=== PATIENT | female | born 1940 | race Caucasian/White ===

== ENCOUNTER 2022-03-09 19:01 | Inpatient (IN) | payer MEDICARE, OTHER ==
[~2022-03-09] VITALS: Ht 154.9 cm; Wt 68.8 kg
[~2022-03-09 19:01] MED LIST: CALCIUM + VIT1 EACH PO; CENTRUM SILVER1 EAC5 PO; CO Q-10100 MG PO; CRESTOR20 MG PO; FISH OIL500 MG PO; LEVOTHYROXINE100 MCG PO; LISINOPRIL5 MG PO; MACULAR HEALTH1 EACH PO; VITAMIN D-32000 UNIT PO
[2022-03-09] MEDS ORDERED: GABAPENTIN300 MG PO (19:16)
--- NOTE | 2022-03-09 22:00 | NUR ---
PT ARRIVES TO UNIT VIA STRETCHER WITH ED RN AND SON AT SIDE. PT ALERT AND ORIENTED X3. INITIAL SPO2 LOW 90'S ON 5L OXIMASK. NON PRODUCTIVE WHEEZING COUGH NOTED, WITH CRACKLES HEARD THROUGHOUT LUNG MARX. TEMP 99.6 ORAL. PT REPORTS PAIN IN BACK, MOTRIN ADMINISTERED. PRN COUGH SUPPRESENT ALSO ADMINISTERED. PT TITRATED DOWN TO 3L VIA NC AFTER SETTLING. IV SITE PATENT AND FLUSHED, ORDERED IVF STARTED. ORIENTED TO ROOM AND STAFF, CALL LIGHT IN REACH, DENIES FURTHER NEEDS. ADMISSION ASSESSMENT COMPLETE.
--- NOTE | 2022-03-09 23:52 | NUR ---
RN ROUNDING ON PT - RESTING IN BED ON SIDE WITH EYES CLOSED. RR 23 WITH SPO2 91%.
--- NOTE | 2022-03-10 02:09 | NUR ---
RN IN ROOM TO ASSESS PT - PT RESTING ASLEEP, WAKES EASILY WITH TOUCH, QUICKLY RETURNS TO SLEEP. IV SITE WNL. LUNG SOUNDS IMPROVING WITH CLEAR UPPER MARX. SP02 STABLE ON 3L VIA NC. AFEBRILE. CALL LIGHT AT SIDE.
--- NOTE | 2022-03-10 03:00 | NUR ---
NEW IVF BAG HUNG, PT ASLEEP WITH RR EVEN AND UNLABORED. REMAINS ON 3L 02.
--- NOTE | 2022-03-10 03:54 | NUR ---
RN ROUNDING ON PT - REMAINS ASLEEP ON SIDE, RR EVEN AND UNLABORED, SPO2 STABLE ON 3L O2.
--- NOTE | 2022-03-10 04:49 | NUR ---
RN ROUNDING ON PT - REMAINS ASLEEP WITH EVEN AND UNLABORED RESPIRATIONS. CALL LIGHT AT SIDE.
--- NOTE | 2022-03-10 06:45 | NUR ---
pt up to bsc to attempt to void - unable to urinate after much time sitting. bladder scanned for max amount of 201 - report given to day shift rn who stated she would follow up with MD this am with other concerns as well.
--- NOTE | 2022-03-10 08:00 | NUR ---
SLEEPING. IVF PATENT, O2 AT [address] NC IN PLACE. WILL DO ASSESSMENT WHEN WAKES. REMAINS IN ROOM 127 HOUSE CONVENIENCE PATIENT. RR-26 AT SLEEP.
--- NOTE | 2022-03-10 09:04 | NUR ---
PATIENT CONTINUES TO SLEEP. DR. FU THAT PATIENT HAS NOT VOIDED SINCE ADMIT. ORDERS RECIEVED TO HANG LR BOLUS. THIS DONE.
[2022-03-10] MEDS ORDERED: LEVOTHYROXINE88 MCG PO (10:19)
--- NOTE | 2022-03-10 10:30 | NUR ---
DR. FU HERE TO SEE PATIENT. PATIENT HAS NON-PRODUCTIVE COUGH. DENIES PAIN WITH COUGH. ASSESSMENT DONE. IV BOLUS OF LR HAS INFUSED. DENIES NEED TO VOID AT THIS TIME. TOOK FEW BITES OF BREAKFAST. DENIES NAUSEA. HAS POOR APPETITE.
--- NOTE | 2022-03-10 10:40 | NUR ---
ROBUTUSSIN AND TESSALON PERLES GIVEN FOR COUGH. DECREASED O2 TO 2 LITERS NC FROM 3 LITERS SATS 95.
--- NOTE | 2022-03-10 10:42 | NUR ---
TESSALON PERLES AND ROBUTUSSIN GIVEN FOR COUGH. PATIENT SON IS IN ROOM.
--- NOTE | 2022-03-10 10:50 | NUR ---
O2 INCREASED TO 3 L SAT DOWN TO 88. RESTING WITH HOB ELEVATED. SON REMAINS IN ROOM.
--- NOTE | 2022-03-10 12:00 | NUR ---
SLEEPING WITH HOB ELEVATED. REFUSING LUNCH AT THIS TIME. PATIENTS SON REMAINS IN ROOM. IVF PATENT AT 125 ML/HR.
--- NOTE | 2022-03-10 13:11 | EKG ---
[facility] [address] [facility] [place] [address] Signed Normal sinus rhythm Possible Left atrial enlargement Left axis deviation Incomplete right bundle branch block Left ventricular hypertrophy with repolarization abnormality ( R in aVL , Berclair product ) Cannot rule out Septal infarct , age undetermined Abnormal ECG No previous ECGs available Confirmed by LOGAN FU MD ([id number]) on 03/10/2022 1:11:04 PM Electronically Signed By: LOGAN FU MD 03/10/22 1311 PATIENT NAME: NASH YEBOAH Electrocardiogram DATE OF : 42 PHYSICIAN: LOGAN FU MD REPORT #: [id number] REPORT IS CONFIDENTIAL AND NOT TO BE RELEASED WITHOUT AUTHORIZATION
--- NOTE | 2022-03-10 15:08 | NUR ---
MED REC COMPLETE
--- NOTE | 2022-03-10 16:00 | NUR ---
ASSESSMENT DONE. COUGH MED GIVEN. DENIES PAIN OR NAUSEA.
--- NOTE | 2022-03-10 18:00 | NUR ---
HEAT PACK APPLIED TO RIGHT HIP, ADVIL 200 MG PO GIVEN FOR R HIP PAIN. TOOK DINNER FAIR.
--- NOTE | 2022-03-10 19:03 | NUR ---
RESTING WITH HOB ELEVATED.
--- NOTE | 2022-03-10 20:30 | NUR ---
PT ASSESSMENT AND MEDICATION ADMINISTRATION COMPLETED. PT IS A/O, RESPIRATIONS EVEN AND REGULAR. CURRENTLY ON 3L NC. IV FLUIDS RUNNING. CALL LIGHT WITHIN REACH.
--- NOTE | 2022-03-10 23:03 | NUR ---
ROUNDED ON PT. PT IS A/O, DENIES NEEDS/COMPLAINTS ATT. HUNG NEW IV FLUID BAG. REMAINS ON 3L NC SPO2 92%. CALL LIGHT WITHIN REACH.
--- NOTE | 2022-03-11 01:00 | NUR ---
PT APPEARS TO BE SLEEPING COMFORTABLY. OXYGEN AT4L NC SPO2 91%. IV FLUIDS RUNNING. CALL LIGHT WITHIN REACH.
--- NOTE | 2022-03-11 01:27 | NUR ---
PT SPO2 97%. OXYGEN TURNED DOWN TO 3L NC. PT APPEARS TO BE SLEEPING COMFORTABLY, RR EVEN AND REGULAR, NONLABORED. CALL LIGHT WITHIN REACH.
--- NOTE | 2022-03-11 03:00 | NUR ---
PT RESTING COMFORTABLY ON LEFT SIDE. 3L O2 NC WITH SPO2 AT 96%. PT IS AFEBRILE, DENIES NEEDS OR COMPLAINTS ATT. CALL LIGHT WITHIN REACH.
--- NOTE | 2022-03-11 05:07 | NUR ---
ROUNDED ON PT. ASSISTED UP TO RESTROOM. PT AMBULATED WELL. SOB AND COUGH ON EXERTION. SAT'S IN THE 80'S. INCREASED O2 TO 4L NC, SPO2 90-91%. UPPER LOBE EXPIRATORY WHEEZES. RT CALLED FOR NEB TREATMENT. PT GIVEN PRN COUGH MEDS.
--- NOTE | 2022-03-11 06:30 | NUR ---
TO PT ROOM FOR MEDICATION ADMINISTRATION. PT IS A/O, RESPIRATIONS EVEN AND REGULAR. IV FLUIDS RUNNING. DENIES COMPLAINTS/NEEDS ATT.
--- NOTE | 2022-03-11 08:00 | NUR ---
ASSESSMENT DONE. TALKED WITH PAILEIGHANN ABOUT POC FOR DAY. INDICATES UNDERSTANDING. SITTING IN BED FOR BREAKFAST.
--- NOTE | 2022-03-11 08:19 | NUR ---
It was a pleasure to visit with Ellie this morning. Ellie is awake and alert, and answers questions appropriately. She is eating breakfast while I am in the room and feeds herself independantly. She is anxious to go home as her son is here visiting from [place]. Ellie lives at home independantly, she unfortunately lost her in March of last year. Ellie plans to return home to her current living position, she is able to provide for her own needs. She does drive, she is able to buy her own groceries and medications. She denies need with assistance for home with laundry, housework, etc. Ellie is very pleasant to visit with and states that "My care has been good and you people have wonderful nurses here."
--- NOTE | 2022-03-11 08:20 | NUR ---
TOOK BREAKFAST WELL. DENIES NAUSEA. HAS HARSH NON-PRODUCTIVE COUGH. O2 AT 3 L NC.
--- NOTE | 2022-03-11 09:20 | NUR ---
UP TOBR TO VOID, AM CARES GIVEN WHILE UP. TOLERATED CARES WELL. DENIES INCREASED SHORTNESS OF BREATH WITH EXERTION. AFTER AM CARES DONE, PATIENT AMBULATED IN ROOM. TOLERATED WELL. HAS OCC HARSH NON-PRODUCTIVE COUGH. REMAINS ON O2 AT 3 L NC, WILL TITRATE PRN TO KEEP SAT>90. ENC TO US I.S AND CORONET.
--- NOTE | 2022-03-11 09:40 | NUR ---
SITTING IN CHAIR.
--- NOTE | 2022-03-11 10:20 | NUR ---
NAPPING IN CHAIR. NO DISTRESS NOTED. SON IN ROOM.
--- NOTE | 2022-03-11 11:30 | NUR ---
TO MED SURG VIA CHAIR. REPORT GIVEN TO KIT PENN.
--- NOTE | 2022-03-11 11:42 | NUR ---
PT RECEIVED FROM CCU, BEDSIDE REPORT FROM HAYLEY PENN. PT ON 3L NC, LOOSE MOIST COUGH, LUNG SOUNDS CLEAR. PT COMPLAINT OF HEADACHE, REQUESTING TYLENOL, PROVIDED. CMS INTACT, WITHOUT EDEMA. IV FLUIDS RESUMED, D5LR AT 125ML/HR. PT PROVIDED WITH LUNCH TRAY. PT DENIES OTHER NEEDS AT THIS TIME.
--- NOTE | 2022-03-11 12:30 | NUR ---
PT WITH POOR APPETITE, DOES NOT LIKE LUNCH. PT PROVIDED WITH VANILLA ENSURE. PT DENIES OTHER NEEDS AT THIS TIME.
--- NOTE | 2022-03-11 14:47 | NUR ---
PT SITTING IN CHAIR. PT STATES SHE IS FEELING MUCH BETTER, HEADACHE HAS IMPROVED. LUNG SOUNDS CLEAR AND DIMINISHED, CONTINUES TO BE ON 3L NC. PT DENIES NEEDS AT THIS TIME.
--- NOTE | 2022-03-11 16:58 | NUR ---
PT ASSISTED TO BATHROOM AND BACK TO CHAIR. PT PROVIDED WITH DINNER. PT DENIES OTHER NEEDS AT THIS TIME.
--- NOTE | 2022-03-11 21:20 | NUR ---
CALL LIGHT ANSWERED. pt COMPLAINS OF SOB. SPO2 94-95% ON WALL MONITOR. PRN BREATHING TREATMENT ADMINISTERED. PRIMARY RN NOTIFIED. PRN COUGH MEDICATION ADMINISTERED.
--- NOTE | 2022-03-11 21:47 | NUR ---
PT ASSESSMENT COMPLETE. PT DENIES PAIN OR NAUSEA. REPORTS SOB. PT WITH FREQUENT DRY, HARSH, BARKY COUGH. PT STATES THAT SHE FEELS THOUGH SHE CANNOT GET A DEEP BREATH. NEBULIZER TREATMENT FINISHED ELECTRONIC PUBLISHING SPECIALIST ENTERS ROOM. LUNG SOUNDS WITH EXPIRATORY WHEEZE THROUGHOUT. SA02 92% ON 4 LPM. PRN ADMINISTERED FOR COUGH, SEE EMAR. IV FLUSHED WITH 10 ML NS. IVF INFUSING ORDERED. PT DENIES FURTHER NEEDS AT THIS TIME. CALL LIGHT IN REACH.
--- NOTE | 2022-03-12 00:15 | NUR ---
PT UTLIZES CALL LIGHT, REQUESTS TO USE THE BATHROOM. PT TO BATHROOM AND BACK TO BED WITH 1PA. SOB AFTER RETURNING TO BED, RECOVERS AT REST. PT DENIES FURTHER NEEDS. CALL LIGHT IN REACH.
--- NOTE | 2022-03-12 02:26 | NUR ---
PT ASSESSMENT COMPLETE. AUTOMOBILE MECHANIC SUPERVISOR TO ROOM FOR CPOX ALARMING. SA02 LOW 80'S, PT FOUND WITH HER O2 OFF. PT STATES "OH I DIDN'T KNOW IT WAS OFF". STATES IT CAME OFF WHILE SHE WAS SLEEPING. PT ASSISTED TO REPLACE OXYMASK. PT CONTINUES TO BREATH THROUGH HER MOUTH. 02 @ 4LPM, O2 INCREASES TO 92%. LUNG SOUNDS WITH COARSE CRACKLES TO BILATERAL BASES. DO NOT CLEAR WITH COUGH. PT COUGHS FREQUENTLY THROUHGOUT ASSESSMENT. NO MUCOUS PRODUCTION NOTED. PT DENIES FURTHER NEEDS AT THIS TIME. CALL LIGHT IN REACH.
--- NOTE | 2022-03-12 03:00 | NUR ---
CUSTOMER TRAINER TO ROOM FORCPOX ALARMING. PT FOUND WITH O2 OFF. SHE STATES IT CAM OFF WHILE SHE SLEPT. SA02 IN 80'S. OXYMASK REPLACED, O2 @ 4LPM. SAO2 INCREASES TO LOW 90'S. PT DENIES FURTHER NEEDS AT THIS TIME. CALL LIGHT IN REACH.
--- NOTE | 2022-03-12 04:56 | NUR ---
PT IN BED. VITALS AND IS AND OS COMPLETE. PT ASSISTED UP TO BATHROOM. SBA. PT USES TOILET WELL PERFORMS AM/ORAL CARE. PT ASSISTED TO CHAIR. SBA. PT GIVEN BLANKET. NO FURTHER NEEDS. CALL LIGHT WITHIN REACH.
--- NOTE | 2022-03-12 05:34 | NUR ---
PT UTILIZES CALL LIGHT, PT SITTING IN CHAIR AND REQUESTS REPOSITIONING. PT STATES SHE IS GOING TO TRY TO SLEEP A BIT LONGER. DENIES FURTHER NEEDS. CALL LIGHT IN REACH.
--- NOTE | 2022-03-12 07:49 | NUR ---
PT SITTING UP IN THE RECLINER AT TIME OF SHIFT REPORT, DENIES NEED OF ANYTHING. SATS 95% WEARING OXY MASK. CALL LIGHT IN REACH
--- NOTE | 2022-03-12 09:21 | NUR ---
PT CONTINUES UP IN THE CHAIR AFTER MORNING MEAL, SON IS PRESENT. FRESH H20 TO CHAIRSIDE, OXYMASK IN PLACE, CALL LIGHT IN LAP. PT DENIES NEEDS AT THIS TIME
--- NOTE | 2022-03-12 10:12 | NUR ---
PATIENT UP TO COMMODE WITH 1PA TO VOID, BACK IN CHAIR AND DENIES OTHER NEEDS.
--- NOTE | 2022-03-12 12:48 | NUR ---
PT RETURNS TO RESTING IN BED REQUESTS ICE CREAM REFUSES REGULAR LUNCH. CXR TAKEN REPORT SUGGESTS PNEUMONIA IS GETTING WORSE NOT BETTER.
--- NOTE | 2022-03-12 14:23 | NUR ---
PATIENT IS SITTING IN BED WATCHING TV. PATIENT STATES HER PCP IS NEHA CANALES. THE PLAN OF CARE HAS NOT CHANGED.PATIENT PLANS TO GO HOME WITH HELP FROM HER FAMILY. PATIENT WILL USE HAS A WALKER AT HOME TO HELP WITH BALANCE.
--- NOTE | 2022-03-12 14:33 | NUR ---
PT RESTING IN BED OXYMASK IN PLACE, DOZING OFF AND ON. SON REMAINS PRESENT
--- NOTE | 2022-03-12 14:54 | NUR ---
SPOKE TO DR URBINA REQUEST ABX FOR ELEVATED WBC'S AND WORSENING PNEUMONIA
--- NOTE | 2022-03-12 17:15 | NUR ---
UPDATE GIVEN TO PT DAUGHTER PER PT REQUEST. PT CONTINUES SPEAKING TO HER ON THE PHONE AT THIS TIME. SON REMAINS AT BEDSIDE
--- NOTE | 2022-03-12 20:00 | NUR ---
PATIENT AWAKE IN BED, ALERT AND ORIENTED X4. PATIENT REPORTS SHE IS SHORT OF BREATH. PATIENT PLACED TO SEMI FOWLERS, SLIGHT RELIEF SHE REPORTS. PATIENT IS ON 3L OXYGEN AT THIS TIME, SP02 91%. PATIENT REPORTS SHE HAS FELT SHORT OF BREATH THROUGHOUT THE DAY TODAY. PATIENT HAS AN OXYMASK IN PLACE SHE IS A MOUTH BREATHER. ENCOURAGED PATIENT TO TRY TO REST AND REMAIN POSITIONED HOW SHE IS TO PREMOTE BETTER LUNG EXPASION, SHE VERBALIZED HER UNDERSTANDING OF CURRENT PLAN OF CARE. PATIENT HAS CALL LIGHT WITHIN REACH AND REPORTS SHE WILL NOTIFY STAFF IF SHE HAS ANY NEEDS. CALL LIGHT WITHIN REACH. SP02 MONITOR INTACT.
--- NOTE | 2022-03-12 20:32 | NUR ---
CALL LIGHT ANSWERED. pt INCONTINENT OF URINE WITH COUGHING. SBA TO BS FOR 500 ML VOID AND BACK TO BED. pt SOB, SPO2 DROPS TO 86% WITH 3L OXYGEN BY OXYMASK IN PLACE, TITRATED TO 5L OXYGEN BY OXYMASK, SPO2 INCREASES TO WNL, TITRATED BACK TO 3L AT REST. YELLOW DISCHARGE NOTED IN EYES, WARM WASH CLOTH PROVIDED, WARM COMPRESS IN USE AT THIS TIME. pt RESTING IN BED, HOB UP. pt STILL COMPLAINS OF SOB, PRIMARY RN NOTIFIED. CALL LIGHT IN REACH.
--- NOTE | 2022-03-12 20:57 | NUR ---
Tylenol 500mg po and tessalon perles 200mg admin for cough and rib pain.
--- NOTE | 2022-03-12 23:20 | NUR ---
CALLED INTO ROOM TO START ANOTHER IV. THIS RN ATTEMPTED X 3, UNSUCCESFUL. WAS ABLE TO GET FLASH, UPON THREADING VEINS BLEW EASILY
--- NOTE | 2022-03-13 00:58 | NUR ---
report from maciel gomez,
--- NOTE | 2022-03-13 04:45 | NUR ---
MD NOTIFIED OF LIMITED VEIN STATUS. OKAY WITH LEAVING IV OUT, FLUIDS STOPPED UNTIL PICC RN CAN ASSESS FOR US GUIDED IV OR MIDLINE.
--- NOTE | 2022-03-13 05:45 | NUR ---
CALL LIGHT ANSWERED. 1PA TO BSC FOR VOID. SPO2 DROPS TO 87% WITH 3L OXYGEN BY OXYMASK IN PLACE. TITRATED TO 5L OXYGEN BY OXYMASK. pt SITTING UP AT SIDE OF BED. SPO2 INCREASES TO 90-91%. PRIMARY RN NOTIFIED. CALL LIGHT IN REACH.
--- NOTE | 2022-03-13 06:13 | NUR ---
[facility] DOWNTIME LAST NIGHT - SEE PAPER CHART.
--- NOTE | 2022-03-13 07:47 | NUR ---
recieved shift report. pt resting in bed, awake. call light within reach.
--- NOTE | 2022-03-13 08:25 | NUR ---
MORNING ASSESSMENT COMPLETE. PT AWAKE IN BED. DENIES PAIN. LUNG SOUNDS HEARD BILAT IN ALL LOBES. PRODUCTIVE, MOIST COUGH. CONIUNES ON 3L OXY MASK, SPO2 93%. PT ENCOURAGED TO USE VIBRAPEP AND I.S. CALL LIGHT WITHIN REACH.
--- NOTE | 2022-03-13 12:58 | NUR ---
DISCHARGE PLAN IS THE PATIENT WILL GO HOME WHERE SHE LIVES ALONE. PATIENT HAS A SON THAT CAN HELP ONLY BRIEFLY, HE LIVES IN [place] AND HAS TO GO HOME SOON. PATIENT REQUESTS HOME HEALTH ON D[facility] FOR POSSIBLE WELL CHECKS.
--- NOTE | 2022-03-13 14:20 | NUR ---
PATIENT UP TO BSC AND BACK TO BED, SBA. VITALS AND I&O'S CHARTED. CALL LIGHT IN REACH. NO FURTHER NEEDS AT THIS TIME.
--- NOTE | 2022-03-13 15:57 | NUR ---
AFTERNOON ASSESSMENT COMPLETE. CLEAR LUNG SOUND BILAT UPPER. DIMINISHED AND COURSE BILAT LOWER. COUGH MORE PRODUCTIVE THAN MORNING ASSESSMENT. SPO2 94% ON 5L NC. RIGHT UPPER EXT RED AND WARM TO THE TOUCH. CALL LIGHT WITHIN REACH. DENIES FURTHER NEEDS.
--- NOTE | 2022-03-13 16:12 | NUR ---
NOTIFIED DR FREITAS REGARDING BLOOD CULTURES. WILL PUT ORDERS IN.
--- NOTE | 2022-03-13 18:01 | NUR ---
PATIENT SITTING UP IN CHAIR WATCHING TV. VITALS AND I&O'S CHARTED. CALL LIGHT IN REACH. NO FURTHER NEEDS AT THIS TIME.
--- NOTE | 2022-03-13 19:15 | NUR ---
report from neha rn, 3l oxygen nc, no iv as infilterated today - dr louisa hurley ordered. call light in reach - white board updated.
--- NOTE | 2022-03-13 20:19 | NUR ---
pt inc. urine and up to bsc for nasrin care - pt void 200 ml of urine in bsc. sob with exertion and low sats to the 80's on 3l with movement. vitals/i/o completed and pt back to bed - assessment done - pt poor lung sounds in the back bases - rhonci,
--- NOTE | 2022-03-13 21:45 | NUR ---
NIO FOR LAST BM 03/09/22 - WANTS TO TRY SENNA FIRST. FEELING BETTER AFTER NEB TX WITH RN, COUGH NOTED, NON PRODUCTIVE. PT HAS LEG PAIN RIGHT NERVE PAIN, REI GIVEN PO. ALSO TYLENOL.
--- NOTE | 2022-03-14 03:00 | NUR ---
CALL LIGHT ANSWERED. 1 PA TO BEDSIDE COMMODE. PATIENT VOIDED 600ML. PATIENT IS BACK IN BED. PATIENT C/O OF "HOT IN THE ROOM". ROOM TEMP DOWN FROM 76 TO 70. NO OTHER NEEDS AT THIS TIME. CALL LIGHT WITHIN REACH.
--- NOTE | 2022-03-14 05:28 | NUR ---
PT EYES CLOSED, RESP EVEN, CALL LIGHT IN REACH.
--- NOTE | 2022-03-14 06:04 | NUR ---
pt reports sleeping well last night - reports cough improved - robitussin given this am and she thinks it helps. pt continues to use nasal cannula.
--- NOTE | 2022-03-14 07:39 | NUR ---
recieved shift report. pt resting in bed, eyes closed. breathing even and unlabored. call light within reach.
--- NOTE | 2022-03-14 08:54 | NUR ---
MORNING ASSESSMENT COMPLETE. PT UP IN CHAIR EATING BREAKFAST. DENIES PAIN. LUNG SOUNDS DIMINISHED BILAT UPPER, FINE CRACKELS BILAT LOWER. PRODUCTIVE, LOOSE COUGH. SPO2 95% ON 3L NC. CPOX AT BEDSIDE. BREATHING EVEN AND UNLABORED, RR 17. CALL LIGHT WITHIN REACH, DENIES FURTHER NEEDS.
--- NOTE | 2022-03-14 10:50 | NUR ---
Spoke with pt and her son. She states she cont. weak. Asked if she is able to walk in the room and she states she doesn't think she has. Son states he will be able to stay with him mom as long as she needs when she goes home. Per 929 meeting, Dr. coyle order PT/OT nafisa.
--- NOTE | 2022-03-14 13:25 | NUR ---
PT UP TO COMMODE WITH RN, VOID NOTED. PT BACK TO CHAIR WITH CALL LIGHT WITHIN REACH.
--- NOTE | 2022-03-14 16:19 | NUR ---
AFTERNOON ASSESSMENT COMPLETE. PT ABLE TO TRANSFER FROM CHAIR TO COMMODE WITHOUT DIFFICULTY. PT STATES "I DONT THINK I AM GOING TO HAVE A GOOD NIGHT". STATES SHE FEELS SHE IS HAVING A HARD TIME BREATHING. RIGHT UPPER LOBE, CLEAR. LEFT UPPER LOBE DIMINISHED. CRACKLES BILAT LOWER LOBES. CPOX AT BEDSIDE. SPO2 91% ON 3L NC. BREATHING EVEN AND UNLABORED, RR 20. PT REQUESTING BREATHING TREATMENT. CALL LIGHT WITHIN REACH, FAMILY AT BEDSIDE.
--- NOTE | 2022-03-14 19:30 | NUR ---
SHIFT REPORT RECEIVED FROM FILI PILLAI. GEORGE DELIVERED FROM FAMILY. PT DENIES NEEDS AT THIS TIME, 5L O2 VIA NC IN PLACE.
--- NOTE | 2022-03-14 20:50 | NUR ---
ASSESSMENT COMPLETED, VSS. NO IV'S IN PLACE. PT GIVEN EVENING MEDS PER ORDERS. PT DENIES NEEDS OR COMPLAINTS. 5L O2 VIA NC REMAINS IN PLACE, LUNGS CURRENTLY SOUND DIM AND COARSE. CALL LIGHT AND BELONGINGS WITHIN REACH, PT DENIES NEEDING TO USE BATHROOM AT THIS TIME.
--- NOTE | 2022-03-14 22:00 | NUR ---
PT ASSISTED WITH BSC, BACK TO BED
--- NOTE | 2022-03-14 23:05 | NUR ---
PT APPEARS TO BE SLEEPING AT THIS TIME, NO APPARENT DISTRESS. 5L O2 VIA NC IN PLACE, SPO2 95%.
--- NOTE | 2022-03-15 00:08 | NUR ---
PT APPEARS TO BE ASLEEP AT THIS TIME, OXYGEN REMAINS IN PLACE. RESPIRATIONS EVEN AND UNLABORED, NO APPARENT DISTRESS.
--- NOTE | 2022-03-15 01:30 | NUR ---
PT RECENTLY UP TO BSC WITH 1-PA TO VOID WITH FILI ZEPEDA. THIS RN ROUNDING, PT REQUESTS PRN COUGH MEDICINE, GIVEN AT THIS TIME. R.T. IN TO CHECK ON PT TO SEE IF SHE'D LIKE BREATHING TREATMENT, DECLINES AT THIS TIME. NO FURTHER REQUESTS.
--- NOTE | 2022-03-15 04:30 | NUR ---
PT APPEARS TO BE ASLEEP AT THIS TIME, NO APPARENT DISTRESS. RESPIRATIONS EVEN AND UNLABORED, OXYGEN REMAINS IN PLACE.
--- NOTE | 2022-03-15 05:30 | NUR ---
IN TO CHECK ON PT WHO STATES SHE JUST WOKE UP. PT REPORTS SHE SLEPT WELL AND IS FEELING GOOD THIS MORNING. ASSESSMENT COMPLETED. 5L O2 REMAIN IN PLACE, LUNGS CLEAR, SLIGHTLY DIM IN BASES. FRESH ICE WATER PROVIDED, PT DENIES FURTHER NEEDS. DIVIDING MACHINE OPERATOR HELPER IN TO COLLECT MORNING LABS.
--- NOTE | 2022-03-15 06:45 | NUR ---
IN TO GIVE THYROID MEDICATION, BUT PT SLEEPING WELL AT THIS TIME, WILL DEFER UNTIL PT WAKES UP.
--- NOTE | 2022-03-15 08:45 | NUR ---
PATIENT SITTING UP IN CHAIR WATCHING TV, NO ACUTE DISTRESS. PATIENT REPORTS SHE IS FEELING BETTER TODAY, SHORTNESS OF BREATH REPORTED TO BE IMPROVED. PATIENT IS CURRENTLY ON 5L OXYGEN PER NC, SP02 93%, RESPIRATIONS NON LABORED. PATIENT DENIES NEEDS AT THIS TIME, PERSONAL SUPPLIES AND CALL LIGHT WITHIN REACH.
--- NOTE | 2022-03-15 09:55 | NUR ---
PER AM MEETING PATIENT STILL REQUIRING O2. NO CHANGE IN DISCHARGE PLAN AT THIS TIME.
--- NOTE | 2022-03-15 10:03 | NUR ---
PATIENT IN CHAIR VISITING WITH FAMILY. VITALS AND I/O'S COMPLETED. ICE WATER GIVEN. PT HAS NO OTHER NEEDS AT THIS TIME. CALL LIGHT WITHIN REACH.
--- NOTE | 2022-03-15 11:54 | NUR ---
PT ALERT, ORIENTED AND VISITING WITH HER SON MANUEL FROM [place]. PT IS EATING [place], ABLE TO FEED HER SELF. VERY ADAMENT ABOUT RETURNING [place] SOON POSSIBLE. GAVE ENCOURAGEMENT, G.POST AND HAD PRAYER. WILL FOLLOW
--- NOTE | 2022-03-15 13:36 | NUR ---
PATIENT IN CHAIR, SITTING WITH FAMILY. VITALS AND I/O'S COMPLETED. PT HAS NO OTHER NEEDS AT THIS TIME. CALL LIGHT WITHIN REACH.
--- NOTE | 2022-03-15 15:00 | NUR ---
PATIENT UP IN CHAIR VISITING WITH SON, NO DISTRESS. PATIENT ON 4L OF OXYGEN OER NC, SPO2 @ 93%. PATIENT DENIES SHORTNESS OF BREATH AT REST. NO CURRENT NEEDS, PERSONAL SUPPLIES AND CALL LIGHT WITHIN REACH.
--- NOTE | 2022-03-15 17:25 | NUR ---
PATIENT SITTING UP IN CHAIR VISITING WITH HER SON, NO DISTRESS. PATIENT IS ON 4L OXYGEN PER NC, SP02 93%. TYLENOL 650MG PO AND TESSALON PERLES 100MG PO PROVIDED FOR BACK PAIN AND COUGH. PATIENT REPORTS A DECREASED APPETITE, CKN BROTH PROVIDED PER REQUEST. PT DENIES NEEDS, PERSONAL SUPPLIES AND CALL LIGHT WITHIN REACH.
--- NOTE | 2022-03-15 18:47 | NUR ---
PATIENT IN CHAIR VISITING WITH FAMILY. VITALS AND I/O'S COMPLETED. PT HAS NO OTHER NEEDS AT THIS TIME. CALL LIGHT WITHIN REACH.
--- NOTE | 2022-03-15 19:39 | NUR ---
Received report from offgoing shift. Hourly rounding initiated.
--- NOTE | 2022-03-15 23:22 | NUR ---
ASSESSMENT COMPLETE, MEDICATION ADMINISTERED. NO COMPLAINT OF PAIN OR DISCOMFORT.
--- NOTE | 2022-03-16 02:21 | NUR ---
hourly rounding. pt is resting peacfully on back, breathing even and unlabored, no signs of distress or pain. Pt call light in reach,
--- NOTE | 2022-03-16 03:07 | NUR ---
received Fax stating blood culture positive for gram positive cocci in clusters. will notify MD at next contact, result placed on MD desk
--- NOTE | 2022-03-16 03:27 | NUR ---
Hourly rounding. Pt resting on back in bed, breathing even and un labored, no evidence of pain or discomfort. call light in reach
--- NOTE | 2022-03-16 05:35 | NUR ---
PATIENT UP TO BSC, TOLERATED ACTIVITY FAIR WITH MINIMAL SOB. OXYGEN SATURATION 85% WITH EXTERTION, APPEARS TO RECOVER WITHIN MINUTES AFTER RETURNING TO BED TO 90% ON 6L NC. PATIENT STATES " I AM FEELING BETTER THAN WHEN I WAS ADMITTED TO THE HOSPITAL". PROVIDED WARM BLANKET, AND FRESH ICE WATER. NO OTHER NEEDS AT THIS TIME. REPORTED ACTIVITY TOLERANCE TO PRIMARY RN.
--- NOTE | 2022-03-16 05:55 | NUR ---
In pt room for PRN medication for coughing. Pt resting comfortably, no complaint of pain. Pt call light in reach.
--- NOTE | 2022-03-16 06:47 | NUR ---
Pt was calm and cooperative, able to make needs known. Pt reported "feeling a bit better" and that her chest "felt looser". Pt was given 1 dose of Robitussin for cough, otherwise reported no pain or discomfort. Pt slept for the evening, was medication compliant
--- NOTE | 2022-03-16 07:05 | NUR ---
REPORT RECEIVED FROM KATELYN PENN, ALL QUESTIONS ANSWERED.
--- NOTE | 2022-03-16 08:32 | NUR ---
PT SITTING UP IN CHAIR THIS AM. AM CARE COMPLETED. PT HAS NO OTHER NEEDS AT THIS TIME. CALL LIGHT WITHIN REACH.
--- NOTE | 2022-03-16 09:33 | NUR ---
MORNING ASSESSMENT COMPLETE. PT SITTING UP IN RECLINER, FINISHED BREAKFAST. PT ON 6L NC CPOX IN PLACE, O2 SAT 90-93%. LUNG SOUNDS CLEAR, DIM IN THE BASES. PT DENIES PAIN OR NEEDS AT THIS TIME. CALL LIGHT IN REACH.
--- NOTE | 2022-03-16 10:02 | NUR ---
PATIENT IN CHAIR AFTER MEAL. VITALS AND I/O'S COMPLETED. PATIENT HAS NO OTHER NEEDS AT THIS TIME. CALL LIGHT WITHIN REACH.
--- NOTE | 2022-03-16 13:39 | NUR ---
PATIENT SITTING UP IN CHAIR AFTER MEAL. VITALS AND I/O'S COMPLETED, PT HAS NO OTHER NEEDS AT THIS TIME. CALL LIGHT WITHIN REACH.
--- NOTE | 2022-03-16 15:16 | NUR ---
RECEIVED REPORT AND PT HAS NO C/O AT THIS TIME, UP IN THE CHAIR WITH FAMILY AT THE BEDSIDE. SON ASKED FOR EYE DROPS FOR DRY EYES FOR PT.
--- NOTE | 2022-03-16 15:31 | NUR ---
PT C/O OF SOMETHING IN HER WASHED HER LEFT EYE OUT WITH SALINE, A FEW DROPS X 3. PT STATES THAT IT IS BETTER. SHE REMAINS UP IN THE CHAIR WITH FAMILY IN THE ROOM.
--- NOTE | 2022-03-16 17:27 | NUR ---
PT REMAINS UP IN THE CHAIR C/O'S TIRED OF NOT FEELING WELL. "I DONE WITH BEING SICK" SET UP FOR DINNER. SHE WILL TRY TO EAT.
--- NOTE | 2022-03-16 18:11 | NUR ---
PATIENT UP IN CHAIR VISITING WITH FAMILY. VITALS AND I/O'S COMPLETED. PT HAS NO OTHER NEEDS AT THIS TIME. CALL LIGHT WITHIN REACH.
--- NOTE | 2022-03-16 18:46 | NUR ---
PT REMAINS UP IN THE CHAIR AND FAMILY AT BEDSIDE.
--- NOTE | 2022-03-16 19:19 | NUR ---
Received report from offgoing shift, hourly rounding initiated
--- NOTE | 2022-03-17 01:00 | NUR ---
hourly rounding - pt laying in bed after visit, medications administered
--- NOTE | 2022-03-17 01:01 | NUR ---
Hourly rounding,no complaints of pain or discomfort at this time.
--- NOTE | 2022-03-17 02:22 | NUR ---
Pt resting on back, breathing even and unlabored. Pt call light in reach
--- NOTE | 2022-03-17 04:00 | NUR ---
Hourly rounding - pt laying in bed, eyes closed, breathing even and unlabored. Pt call light in reach, no complaint of pain or discomfort.
--- NOTE | 2022-03-17 06:42 | NUR ---
Pt was calm and cooperative, able to make needs known. Pt was up in the early evening, visiting with family. Pt in good spirits, medication compliant. Pt O2 at 5l, O2 saturations 94 percent. Pt had no complaint of SOB during the night, received one round of cough medicine and one dose of tylenol for a headache. Pt stated she slept well, was up in the chair first thing in the morning.
--- NOTE | 2022-03-17 07:42 | NUR ---
PT RESTING EYES CLOSED IN RECLINER AT TIME OF SHIFT REPORT, LEFT UNDISTURBED. CALL LIGHT IS IN REACH FRESH H20 TO CHAIRSIDE.
--- NOTE | 2022-03-17 11:20 | NUR ---
PT SITTING UP IN THE RECLINER TOLERATED MOST ALL OF MORNING MEAL. DOZING AT THIS TIME, SON PRESENT IN THE ROOM. 02 AT 4LPM NC SATS 95%
--- NOTE | 2022-03-17 13:30 | NUR ---
PT IS SITTING UP IN CHAIR AFTER LUNCH, SON IS IN ROOM WITH PT. VITALS AND I/O HAVE BEEN DOCUMENTED. PT HAS NO OTHER NEEDS AT THIS TIME, CALL LIGHT IS WITHIN REACH.
--- NOTE | 2022-03-17 14:27 | NUR ---
PT CONTINUES UP IN THE RECLINER THIS SHIFT, FAMILY MEMBER IS PRESENT. PT WATCHING TV BREATHING EVEN AND UNLABORED. CONTINUES AN OCCASSIONAL COUGH DENIES SPUTUM PRODUCTION. NEEDED ITEMS ON CHAIRSIDE TABLE
--- NOTE | 2022-03-17 17:44 | NUR ---
PT CONTINUES UP IN THE CHAIR, VISITOR STILL PRESENT. EVENING MEAL SERVED PT DENIES OTHER NEEDS OF
--- NOTE | 2022-03-17 20:00 | NUR ---
REPORT RECEIVED FROM NIGHT RN AND PT. CARE RESUMED. PT. IS ALERT AND ORIENTED TO ALL. SHE DENIES SOB OR PAIN. ASSESSMENT COMPLETED. MEDS ADMINISTERED. PT. ON 4L O2 NC WITH CPOX IN PLACE AND 02 SAT IS 93%. LEFT RESTING IN CHAIR WITH CALL LIGHT IN REACH.
--- NOTE | 2022-03-17 23:00 | NUR ---
ROUNDING ON PT. SHE IS AWAKE IN BED WATCHING TV. DENIES NEEDS AT THIS TIME.
--- NOTE | 2022-03-18 00:03 | NUR ---
SBA TO BEDSIDE COMMODE AND BACK TO BED. ICE WATER REFILLED. NO OTHER CARE NEEDS AT THIS TIME.
--- NOTE | 2022-03-18 01:09 | NUR ---
RECEIVED REPORT FROM [facility]. PT TO POSSIBLY DC TOMORROW, CURRENTLY ON O2 AND P.O. MEDS.
--- NOTE | 2022-03-18 02:04 | NUR ---
IN ROOM TO CHECK ON PT, SHE IS ASLEEP RESTING ON HER LEFT SIDE. CALL LIGHT IS WITHIN HER REACH.
--- NOTE | 2022-03-18 03:36 | NUR ---
CHECKED ON PT, SHE REMAINS ASLEEP, HAS CHANGED POSITION TO HER RIGHT SIDE. CALL LIGHT IN REACH.
--- NOTE | 2022-03-18 04:20 | NUR ---
CALL LIGHT ANSWERED. CPOX ALARMING, BATTERY LOW, CPOX PLUGGED IN. pt DENIES ANY REQUESTS STATES SHE HAS BEEN RESTING WELL.
--- NOTE | 2022-03-18 07:15 | NUR ---
PT SLEEPING SOUNDLY AT TIME OF SHIFT EXCHANGE LEFT UNDISTURBED. [address] CALL LIGHT IN REACH.
--- NOTE | 2022-03-18 08:34 | NUR ---
PT SATS 96% ON 4 LPM 02 NC. DECREASED TO 3 LPM. CHECKING BACK 02 SATS ARE 92 AND 93% PT TOLERATING WELL LEFT AT 3LPM
[2022-03-18] MEDS ORDERED: LEVOFLOXACIN750 MG PO (08:47)
--- NOTE | 2022-03-18 10:01 | NUR ---
PT TOLERATES MORNING MEAL SATS REMAIN 93% ON 3 L 02. R/T ARRIVES TO DO TESTING FOR POSSIBIBLE NEED OF HOME 02
--- NOTE | 2022-03-18 13:05 | NUR ---
PT SITTING IN CHAIR, TV ON. SHE WELCOMED ME IN HER RM, INFORMED ME SHE IS TO DC LATER TODAY. PT EXPRESSES GRATITUDE FOR CARE SHE HAS RECEIVED AT [facility]. GAVE BLESSING, WILL FOLLOW
--- NOTE | 2022-03-18 14:16 | NUR ---
PT DC HOME VIA WC. OXYGEN TANK GIVEN ORDERED. OXYGEN VIA NC 5 LITERS. BELONGINGS WITH PT.
== END 2022-03-18 14:25 | disposition home or self-care (01) | DRG 193 ==
LOC: ED 19:01 → CCU 20:53 → MS 20:53
PROVIDERS: ADMIT Internal Medicine; ATTEND Internal Medicine
DX: J10.01 Influenza due to other identified influenza virus with the same other identified influenza virus pneumonia (principal); J96.01 Acute respiratory failure with hypoxia; Z20.822 Contact with and (suspected) exposure to COVID-19; E87.6 Hypokalemia; E86.0 Dehydration; E03.9 Hypothyroidism, unspecified; E78.5 Hyperlipidemia, unspecified; G89.29 Other chronic pain; M54.9 Dorsalgia, unspecified; Z79.899 Other long term (current) drug therapy
CPT/HCPCS: 36415; 51798; 71045; 80048; 80053; 83735; 83880; 84484; 85025; 87040; 87077; 87186; 87502; 93005; 93010; 94640; 94667; 94668; 94760; 94761; 94762; 97110; 97116; 97161; 97530; 99285-25; A9270; C9803; J1650; J1956; J2405; J3480; J7121; U0003

== ENCOUNTER 2024-11-26 10:00 | Emergency (ER) | payer MEDICARE, OTHER ==
[~2024-11-26] VITALS: Ht 154.9 cm; Wt 82.7 kg
[~2024-11-26 10:00] MED LIST changes: +GABAPENTIN300 MG PO; +LEVOFLOXACIN750 MG PO; +LEVOTHYROXINE88 MCG PO
[2024-11-26 12:15] LABS: BASOPHILS 0.2 % (0.1-1.2); EOSINOPHILS 1.4 % (0.7-5.8); LYMPHOCYTES 20.7 % (19.3-51.7); MCH 33.2 PG (25.6-32.2); MCHC 33.4 g/dL (32.2-35.5); MCV 99.3 fL (79.4-94.8); MONOCYTES 7.9 % (4.7-12.5); NEUTROPHILS 69.6 % (34.0-71.1); RBC 4.16 M/uL (3.93-5.22)
[2024-11-26 12:34] LABS: ALT (SGPT) 12.0 U/L (14-59); AST (SGOT) 18.0 U/L (15-37); GLOMERULAR FILTRATION RATE,EST 79.0 mL/min (>60); PROTEIN, TOTAL 6.9 g/dL (6.4-8.2); UREA NITROGEN 5.0 mg/dL (7-18)
[2024-11-26 12:48] LABS: BLOOD/HGB, URINE NEGATIVE (Negative); KETONE, URINE TRACE (Negative); LEUK ESTERASE, URINE SMALL (negative); NITRITE, URINE NEGATIVE (negative)
[2024-11-26 12:54] LABS: BACTERIA, URINE NONE SEEN /hpf (negative); CASTS, URINE NONE SEEN \\lpf; CRYSTALS, URINE NONE SEEN (0-1+); REFLEX CULTURE, URINE Yes (No)
[2024-11-26 13:45] VITALS: BP 167/71
[2024-11-26] MEDS ORDERED: APIXABAN 5 MG TAB PO ONE (13:45)
== END 2024-11-26 13:50 | disposition home or self-care (01) ==
LOC: ED 10:00
PROVIDERS: Emergency Medicine
DX: I82.402 Acute embolism and thrombosis of unspecified deep veins of left lower extremity (principal); Z79.899 Other long term (current) drug therapy; Z79.890 Hormone replacement therapy; Z79.01 Long term (current) use of anticoagulants
CPT/HCPCS: 36415; 71045; 80053; 81001; 84484; 85025; 85610; 99283-25

== ENCOUNTER 2024-11-26 21:57 | Emergency (ER) | payer MEDICARE, OTHER ==
[~2024-11-26] VITALS: Ht 154.9 cm; Wt 81.9 kg
--- OUTSIDE RECORDS SUMMARY | 2024-11-26 22:03 | XMS ---
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 Naomie has no Care Guidelines for this patient. [facility] VISIT COUNT (12 MO.) 2 [facility] TOTAL 2 NOTE: Visits indicate total known visits. ED/C VISIT TRACKING (12 MO.) 11/26/2024 21:57 [facility] [place] TYPE: Emergency COMPLAINT: - LEG PAIN 11/26/2024 10:00 [facility] [place] TYPE: Emergency COMPLAINT: - BILATERAL LEG PAIN INPATIENT VISIT TRACKING (12 MO.) No inpatient visits to display in this time frame [email or web address]
[2024-11-26 23:00] VITALS: BP 147/86
== END 2024-11-26 23:00 | disposition home or self-care (01) ==
LOC: ED 21:57
DX: I82.402 Acute embolism and thrombosis of unspecified deep veins of left lower extremity (principal); Z79.890 Hormone replacement therapy; Z79.899 Other long term (current) drug therapy
CPT/HCPCS: 99283